=== PATIENT | female | born 1945 | race Caucasian/White ===

== ENCOUNTER 2021-03-15 09:16 | Emergency (ER) | payer MEDICARE, BC ==
[~2021-03-15] VITALS: Ht 147.3 cm; Wt 57.3 kg
[2021-03-15 09:24] VITALS: PULSE 84; TEMP 98.2
[2021-03-15 11:12] VITALS: BP 111/59
== END 2021-03-15 11:17 | disposition home or self-care (01) ==
LOC: COL.ER 09:16
DX: S02.2XXA Fracture of nasal bones, initial encounter for closed fracture (principal); W01.198A Fall on same level from slipping, tripping and stumbling with subsequent striking against other object, initial encounter; Y93.01 Activity, walking, marching and hiking